=== PATIENT | male | born 2000 | race Caucasian/White ===

== ENCOUNTER 2019-12-04 01:45 | Inpatient (IN) ==
[2019-12-04] MEDS ORDERED: SODIUM CHLORIDE 0.9% 1000ML 1,000 ML IV ONE (01:58)
[2019-12-04 02:13] LABS: Basophils # (auto) 0.04 K/uL (0-0.2); Basophils % (auto) 0.4 %; Eosinophils # (auto) 0.09 K/uL (0-0.5); Hemoglobin 14.6 g/dL (14.0-18.0); Immature Granulocytes # (auto) 0.03 K/uL (0.00-0.02); Immature Granulocytes % (auto) 0.3 %; Lymphocytes # (auto) 3.86 K/uL (1.2-3.4); Lymphocytes % (auto) 41.4 %; Mean Corpuscular Hemoglobin 30.9 pg (25-34); Mean Corpuscular Hgb Conc 33.2 g/dL (32-36); Mean Platelet Volume 11.6 fL (7.4-10.4); Monocytes # (auto) 0.54 K/uL (0.11-0.59); Monocytes % (auto) 5.8 %; Neutrophils # (auto) 4.77 K/uL (1.4-6.5); Neutrophils % (auto) 51.1 %; Platelet Count 263 K/uL (130-400); RDW Coefficient of Variation 12.8 % (11.5-14.5); RDW Standard Deviation 43.8 fL (36.4-46.3); Red Blood Count 4.73 M/uL (4.7-6.1); White Blood Count 9.33 K/uL (4.8-10.8)
--- NOTE | 2019-12-04 02:17 | Emergency Department Note ---
History of Present Illness General Chief complaint: Seizure Stated complaint: SEIZURE Time Seen by Provider: 12/04/19 01:48 Source: patient Mode of arrival: EMS Limitations: no limitations History of Present Illness Maximum Pain Intensity: 2 This patient is a 19-year-old male who presents to the emergency department via EMS for evaluation of a possible seizure. Per EMS, the patient was with friends about 45 minutes prior to arrival. He stood up, stumbled and fell to the ground, hitting the right side of his head. According to his friends, he then had about 1 minute of seizure-like activity. They reported he was confused afterward. There was no tongue biting or incontinence. The patient states that he remembers being with friends and then remembers EMS arriving. He reports some mild pain in the right side of the head where he hit the head. He denies any recent illness, fevers, headaches, neck pain, chest pain, shortness of breath. He is unsure how much he had to eat or drink throughout the day. He does use medical marijuana for anxiety and states that he thinks he was about to smoke marijuana tonight when this episode occurred. He denies any alcohol use or other drug use. He denies any history of seizures. He is healthy other than his history of anxiety. Home Medications Home Medications Medication Instructions Recorded Confirmed Type Medical Marijuana 1 dose INHALATION DIRECTED PRN 12/04/19 12/04/19 History levetiracetam [Keppra] 500 mg PO BID #60 tab 12/04/19 Rx Allergies Allergy/AdvReac Type Severity Reaction Status Date / Time pollen extracts Allergy Intermediate ITCHY Verified 12/04/19 02:32 EYES, SNEEZING, CONGESTION Past Med/Surg History Medical History Anxiety Low blood pressure Panic attack Surgical History No significant past surgical history Family History Other Diabetes Low blood pressure Social History Smoking Status: Never smoker Hx Alcohol Use: Yes Alcohol type: wine Hx Substance Use: Yes Prescribed Medications: Marijuana Preferred Language: Divehi Current Living Situation: Other Current Living Situation Comment: Roomates, [employer] student rents home. current occupational status: student Review of Systems A total of 10 systems reviewed and were otherwise negative Physical Exam Vital Signs Vital Signs - 24 hr 12/04/19 01:55 12/04/19 02:01 12/04/19 02:31 Temperature 36.9 C Temperature Source Oral Pulse Rate 84 85 87 Pulse Rate from SpO2 Sensor 84 86 Respiratory Rate 18 20 19 Respiratory Effort / Characteristics Non-Labored Spontaneous Respiratory Depth Normal Respiratory Pattern Regular Blood Pressure 110/72 148/78 H 120/69 Blood Pressure Mean 84 101 86 Blood Pressure Position Lying Pulse Oximetry 99 100 98 Oxygen Delivery Method Room Air Room Air Room Air Sepsis Recent Fever Within 48 Hours No Sepsis New/Unexplained Change in Mental Status Yes Sepsis Action Taken by Nursing No Action Required 12/04/19 02:45 12/04/19 03:00 12/04/19 03:30 Temperature Temperature Source Pulse Rate 113 H 107 H 96 H Pulse Rate from SpO2 Sensor 113 H 107 H 98 H Respiratory Rate 23 30 H 20 Respiratory Effort / Characteristics Respiratory Depth Respiratory Pattern Blood Pressure 144/61 H 93/57 L 116/61 Blood Pressure Mean 81 71 78 Blood Pressure Position Pulse Oximetry 99 98 95 Oxygen Delivery Method Room Air Non-rebreather Room Air Sepsis Recent Fever Within 48 Hours Sepsis New/Unexplained Change in Mental Status Sepsis Action Taken by Nursing 12/04/19 04:00 12/04/19 04:30 12/04/19 05:00 Temperature Temperature Source Pulse Rate 97 H 100 H 96 H Pulse Rate from SpO2 Sensor 98 H 101 H 96 H Respiratory Rate 20 21 24 Respiratory Effort / Characteristics Respiratory Depth Respiratory Pattern Blood Pressure 118/65 108/60 118/62 Blood Pressure Mean 81 70 79 Blood Pressure Position Pulse Oximetry 95 94 93 Oxygen Delivery Method Sepsis Recent Fever Within 48 Hours Sepsis New/Unexplained Change in Mental Status Sepsis Action Taken by Nursing 12/04/19 05:30 Temperature Temperature Source Pulse Rate 96 H Pulse Rate from SpO2 Sensor 92 H Respiratory Rate 21 Respiratory Effort / Characteristics Respiratory Depth Respiratory Pattern Blood Pressure 93/66 L Blood Pressure Mean 73 Blood Pressure Position Pulse Oximetry 96 Oxygen Delivery Method Sepsis Recent Fever Within 48 Hours Sepsis New/Unexplained Change in Mental Status Sepsis Action Taken by Nursing VITALS: Vitals are noted on the nurse's note and reviewed by myself. Vital signs stable. GENERAL: This is a 19-year-old male, in no acute distress, well-developed well- nourished. SKIN: The skin was without rashes, erythema, edema, or bruising. HEAD: Normocephalic atraumatic. EARS: External auditory canals clear, tympanic membranes pearly melo without erythema or effusion bilaterally. EYES: Pupils equal round and reactive to light and accommodation. Extraocular movements intact. MOUTH: Mucous membranes moist. Bite blevins noted to the lateral aspects of the tongue bilaterally. NECK: Supple without nuchal rigidity. Cervical spine is nontender. HEART: Regular rate and rhythm without murmurs gallops or rubs. LUNGS: Clear to auscultation bilaterally without wheezes, rales or rhonchi. No retractions or accessory muscle use. ABDOMEN: Positive bowel sounds x 4. Soft, nontender to palpation. No guarding or rebound tenderness. MUSCULOSKELETAL: Full range of motion throughout. Strength 5/5 throughout. NEURO: Patient was alert and oriented to person place and time, but does not remember the events that occurred prior to arrival. Normal sensation to light and sharp touch. No focal neurological deficits. Course Course 22:41: Patient began having another seizure. He was given 2 mg lorazepam IV with resolution of seizure activity. Patient was given a loading dose of 2 g Keppra IV. I updated the patient's friend. After the patient was more alert, I spoke with him and received permission to talk with his father. I spoke with the patient's father, Darrell via telephone and explained his presentation and work-up as well as the treatment plan. His father agreed with the treatment plan and plans to drive here tomorrow morning from the [facility]. Consultations Consultation #1: Dr. Marquez - [facility] hospitalist Administered Medications Discontinued Medications Acetaminophen (Acetaminophen 325 Mg Tab) 650 mg PO Q4H PRN PRN Reason: pain/fever Stop: 01/03/20 07:14 Last Admin: 12/04/19 14:04 Dose: 650 mg Documented by: [id number] Gadobutrol (Gadobutrol 65ml Vial) 6.5 ml IV ONCE ONE Stop: 12/04/19 15:56 Last Admin: 12/04/19 15:55 Dose: 6.5 ml Documented by: [id number] Sodium Chloride (Nss 1000ml) 1,000 mls @ 999 mls/hr IV .Q1H1M ONE Stop: 12/04/19 02:58 Last Infusion: 12/04/19 03:36 Dose: 0 mls/hr Documented by: [id number] Admin: 12/04/19 02:09 Dose: 999 mls/hr Documented by: [id number] Lorazepam (Ativan) 2 mg in 4 mls @ 4 mls/min IV NOW STA Stop: 12/04/19 02:45 Last Admin: 12/04/19 02:47 Dose: 4 mls/min Documented by: [id number] Levetiracetam 2,000 mg/ Sodium (Chloride) 270 mls @ 999 mls/hr IV NOW STA Stop: 12/04/19 03:00 Last Infusion: 12/04/19 03:52 Dose: 0 mls/hr Documented by: [id number] Admin: 12/04/19 03:32 Dose: 999 mls/hr Documented by: [id number] Lactated Ringer's (Lr) 1,000 mls @ 125 mls/hr IV .Q8H BHARGAVI Stop: 12/04/19 15:14 Last Admin: 12/04/19 10:33 Dose: 125 mls/hr Documented by: [id number] Levetiracetam (Levetiracetam 500 Mg Tab) 500 mg PO BID [facility] Stop: 01/03/20 11:59 Last Admin: 12/04/19 19:14 Dose: 500 mg Documented by: [id number] Admin: 12/04/19 13:45 Dose: 500 mg Documented by: [id number] Lorazepam (Lorazepam 2 Mg/4 Ml Vial) Confirm Administered Dose 2 mg .ROUTE .STK- MED ONE Stop: 12/04/19 02:43 Last Admin: 12/04/19 02:47 Dose: Not Given Documented by: [id number] Phenol (Chloraseptic 1.4% Soln 180 Ml Btl) 2 sprays MT Q2H PRN PRN Reason: Sore Throat Stop: 01/03/20 12:19 Last Admin: 12/04/19 16:23 Dose: 2 sprays Documented by: [id number] Admin: 12/04/19 14:05 Dose: 2 sprays Documented by: [id number] Critical Care Time Critical Care Time: Yes Total Critical Care Time: 35 I have personally spent greater than 35 minutes of critical care time in the direct management of this patient. This includes bedside care, interpretation of diagnostic studies, and testing, discussion with consultants, patient, and family members, and other required patient management activities. This 35 minutes is in excess of all separately billable procedures. Medical Decision Making Differential Diagnosis Epilepsy, infection, hypoglycemia, electrolyte abnormalities, cardiac sources, intracerebral event, trauma, toxicologic, neurologic, syncope, as well as other pathologies. Home Medications Current Medication List: was personally reviewed by me Laboratory Data Attestation: I reviewed the patient's lab results. Result diagrams: 12/04/19 02:00 12/04/19 02:00 Lab Results 12/04/19 12/04/19 12/04/19 Range/Units 02:00 02:00 02:00 WBC 9.33 (4.8-10.8) K/uL RBC 4.73 (4.7-6.1) M/uL Hgb 14.6 (14.0-18.0) g/dL Hct 44.0 (42-52) % MCV 93.0 (80-100) fL MCH 30.9 (25-34) pg MCHC 33.2 (32-36) g/dL RDW Std Deviation 43.8 (36.4-46.3) fL RDW Coeff of Kasia 12.8 (11.5-14.5) % Plt Count 263 (130-400) K/uL MPV 11.6 H (7.4-10.4) fL Immature Gran % (Auto) 0.3 % Neut % (Auto) 51.1 % Lymph % (Auto) 41.4 % Lyman % (Auto) 5.8 % Eos % (Auto) 1.0 % Baso % (Auto) 0.4 % Neut # (Auto) 4.77 (1.4-6.5) K/uL Lymph # (Auto) 3.86 H (1.2-3.4) K/uL Lyman # (Auto) 0.54 (0.11-0.59) K/uL Eos # (Auto) 0.09 (0-0.5) K/uL Baso # (Auto) 0.04 (0-0.2) K/uL Immature Gran # (Auto) 0.03 H (0.00-0.02) K/uL Sodium 141 (136-145) mmol/L Potassium 3.8 (3.5-5.1) mmol/L Chloride 108 H (98-107) mmol/L Carbon Dioxide 24 (21-32) mmol/L Anion Gap 9.0 (3-11) BUN 17 (7-18) mg/dl Creatinine 1.14 (0.6-1.4) mg/dl Est Cr Clr Drug Dosing 95.7 ml/min Est GFR ( Amer) 106.0 Est GFR (Non-Af Amer) 91.4 BUN/Creatinine Ratio 14.5 (10-20) Glucose 88 (70-99) mg/dl Calcium 8.8 (8.5-10.1) mg/dl Phosphorus 2.6 (2.5-4.9) mg/dl Magnesium 2.5 H (1.8-2.4) mg/dl Total Bilirubin 0.3 (0.2-1) mg/dl AST 19 (15-37) U/L ALT 32 (12-78) U/L Alkaline Phosphatase 62 (45-117) U/L Total Protein 7.7 (6.4-8.2) gm/dl Albumin 4.2 (3.4-5.0) gm/dl Globulin 3.5 (2.5-4.0) gm/dl Albumin/Globulin Ratio 1.2 (0.9-2) TSH 3.460 (0.300-4.500) uIu/ml Urine Color Urine Appearance (Clear) Urine pH (4.5-7.5) Ur Specific [place] (1.000-1.030) Urine Protein (Negative) Urine Glucose (UA) (Negative) Urine Ketones (Negative) Urine Blood (Negative) Urine Nitrite (Negative) Urine Bilirubin (Negative) Urine Urobilinogen (Negative) Ur Leukocyte Esterase (Negative) Urine Opiates Screen (Neg) Ur Methadone, Qual (Neg) Urine Barbiturates (Neg) Ur Phencyclidine (PCP) (Neg) U Amphetamin/Meth Scrn (Neg) MDMA (Ecstasy) Screen (Neg) U Benzodiazepines Scrn (Neg) Ur Cocaine Metabolite (Neg) U Marijuana (THC) Screen (Neg) Ethyl Alcohol mg/dL (0-3) mg/dl COVID-19 Eval Order SARS-CoV-2, RNA, NAAT (NEGATIVE) 12/04/19 12/04/19 12/04/19 Range/Units 02:08 03:30 03:30 WBC (4.8-10.8) K/uL RBC (4.7-6.1) M/uL Hgb (14.0-18.0) g/dL Hct (42-52) % MCV (80-100) fL MCH (25-34) pg MCHC (32-36) g/dL RDW Std Deviation (36.4-46.3) fL RDW Coeff of Kasia (11.5-14.5) % Plt Count (130-400) K/uL MPV (7.4-10.4) fL Immature Gran % (Auto) % Neut % (Auto) % Lymph % (Auto) % Lyman % (Auto) % Eos % (Auto) % Baso % (Auto) % Neut # (Auto) (1.4-6.5) K/uL Lymph # (Auto) (1.2-3.4) K/uL Lyman # (Auto) (0.11-0.59) K/uL Eos # (Auto) (0-0.5) K/uL Baso # (Auto) (0-0.2) K/uL Immature Gran # (Auto) (0.00-0.02) K/uL Sodium (136-145) mmol/L Potassium (3.5-5.1) mmol/L Chloride (98-107) mmol/L Carbon Dioxide (21-32) mmol/L Anion Gap (3-11) BUN (7-18) mg/dl Creatinine (0.6-1.4) mg/dl Est Cr Clr Drug Dosing ml/min Est GFR ( Amer) Est GFR (Non-Af Amer) BUN/Creatinine Ratio (10-20) Glucose (70-99) mg/dl Calcium (8.5-10.1) mg/dl Phosphorus (2.5-4.9) mg/dl Magnesium (1.8-2.4) mg/dl Total Bilirubin (0.2-1) mg/dl AST (15-37) U/L ALT (12-78) U/L Alkaline Phosphatase (45-117) U/L Total Protein (6.4-8.2) gm/dl Albumin (3.4-5.0) gm/dl Globulin (2.5-4.0) gm/dl Albumin/Globulin Ratio (0.9-2) TSH (0.300-4.500) uIu/ml Urine Color Urine Appearance (Clear) Urine pH (4.5-7.5) Ur Specific [place] (1.000-1.030) Urine Protein (Negative) Urine Glucose (UA) (Negative) Urine Ketones (Negative) Urine Blood (Negative) Urine Nitrite (Negative) Urine Bilirubin (Negative) Urine Urobilinogen (Negative) Ur Leukocyte Esterase (Negative) Urine Opiates Screen (Neg) Ur Methadone, Qual (Neg) Urine Barbiturates (Neg) Ur Phencyclidine (PCP) (Neg) U Amphetamin/Meth Scrn (Neg) MDMA (Ecstasy) Screen (Neg) U Benzodiazepines Scrn (Neg) Ur Cocaine Metabolite (Neg) U Marijuana (THC) Screen (Neg) Ethyl Alcohol mg/dL < 3.0 (0-3) mg/dl COVID-19 Eval [email or web address]-2, RNA, NAAT NEGATIVE (NEGATIVE) 12/04/19 12/04/19 Range/Units 04:40 04:40 WBC (4.8-10.8) K/uL RBC (4.7-6.1) M/uL Hgb (14.0-18.0) g/dL Hct (42-52) % MCV (80-100) fL MCH (25-34) pg MCHC (32-36) g/dL RDW Std Deviation (36.4-46.3) fL RDW Coeff of Kasia (11.5-14.5) % Plt Count (130-400) K/uL MPV (7.4-10.4) fL Immature Gran % (Auto) % Neut % (Auto) % Lymph % (Auto) % Lyman % (Auto) % Eos % (Auto) % Baso % (Auto) % Neut # (Auto) (1.4-6.5) K/uL Lymph # (Auto) (1.2-3.4) K/uL Lyman # (Auto) (0.11-0.59) K/uL Eos # (Auto) (0-0.5) K/uL Baso # (Auto) (0-0.2) K/uL Immature Gran # (Auto) (0.00-0.02) K/uL Sodium (136-145) mmol/L Potassium (3.5-5.1) mmol/L Chloride (98-107) mmol/L Carbon Dioxide (21-32) mmol/L Anion Gap (3-11) BUN (7-18) mg/dl Creatinine (0.6-1.4) mg/dl Est Cr Clr Drug Dosing ml/min Est GFR ( Amer) Est GFR (Non-Af Amer) BUN/Creatinine Ratio (10-20) Glucose (70-99) mg/dl Calcium (8.5-10.1) mg/dl Phosphorus (2.5-4.9) mg/dl Magnesium (1.8-2.4) mg/dl Total Bilirubin (0.2-1) mg/dl AST (15-37) U/L ALT (12-78) U/L Alkaline Phosphatase (45-117) U/L Total Protein (6.4-8.2) gm/dl Albumin (3.4-5.0) gm/dl Globulin (2.5-4.0) gm/dl Albumin/Globulin Ratio (0.9-2) TSH (0.300-4.500) uIu/ml Urine Color Yellow Urine Appearance Clear (Clear) Urine pH 5.5 (4.5-7.5) Ur Specific [place] 1.020 (1.000-1.030) Urine Protein Negative (Negative) Urine Glucose (UA) Negative (Negative) Urine Ketones Negative (Negative) Urine Blood Negative (Negative) Urine Nitrite Negative (Negative) Urine Bilirubin Negative (Negative) Urine Urobilinogen Negative (Negative) Ur Leukocyte Esterase Negative (Negative) Urine Opiates Screen Neg (Neg) Ur Methadone, Qual Neg (Neg) Urine Barbiturates Neg (Neg) Ur Phencyclidine (PCP) Neg (Neg) U Amphetamin/Meth Scrn Neg (Neg) MDMA (Ecstasy) Screen Neg (Neg) U Benzodiazepines Scrn Neg (Neg) Ur Cocaine Metabolite Neg (Neg) U Marijuana (THC) Screen Pos H (Neg) Ethyl Alcohol mg/dL (0-3) mg/dl COVID-19 Eval Order SARS-CoV-2, RNA, NAAT (NEGATIVE) Imaging Data Attestation: I personally reviewed and interpreted this imaging study as follows: Radiologist's Impression: CT HEAD: No focal or acute intracranial findings. No abnormalities noted of the bones. Radiologist: Taran Mitchell MD ECG Data Attestation: I personally reviewed and interpreted this ECG as follows: Indication: + other Rate (beats per minute): 89 Rhythm: + normal sinus ECG Intervals/blocks: + Normal QRS ECG ST segments: + Normal ST segments Comparison ECG Date: no prior available MDM Narrative Continuous director of cardiac rehabilitation: Order was placed for continuous director of cardiac rehabilitation. Patient was placed on the director of cardiac rehabilitation. Patient was noted to be in normal sinus rhythm at an initial rate of 85 bpm. The patient is a 19-year-old male who presents today for evaluation of a possible seizure witnessed by friends. Initially it was unclear whether this was a syncopal episode with seizure activity versus a true seizure, however the patient did have a second witnessed seizure here. He was given IV lorazepam as well as a loading dose of Keppra. No signs of infection, with no leukocytosis or fevers. Electrolytes are all within normal limits. Urine drug screen was positive for marijuana which the patient admits to using for anxiety. He has no seizure history. Patient with new onset seizures and will be admitted to the [facility]ist service for further evaluation and care. Impression & Plan Seizure Discharge Plan Visit Data Chief Complaint: Seizure Stated Complaint: SEIZURE ED Provider: Darrell Solano ED Midlevel Provider: Nila Marie Discharge Problem: Seizure Patient Disposition: Admitted As Inpatient Discharge Instructions Interventions: ED Discharge Assessment Last Done: 12/04/19 06:08
[2019-12-04 02:33] LABS: Albumin Level 4.2 gm/dl (3.4-5.0); BUN Creatinine Ratio 14.5 (10-20); Calcium 8.8 mg/dl (8.5-10.1); Creatinine Clr Calc Pharmacy 95.7 ml/min; Est GFR (Non-African American) 91.4; Potassium 3.8 mmol/L (3.5-5.1)
[2019-12-04] MEDS ORDERED: LORazepam 2 MG/4 ML VIAL ONE (02:42)
[2019-12-04 02:43] LABS: Albumin Globulin Ratio 1.2 (0.9-2); Bilirubin,Total 0.3 mg/dl (0.2-1); Globulin 3.5 gm/dl (2.5-4.0); Thyroid Stimulating Hormone 3.46 uIu/ml (0.300-4.500); Total Protein 7.7 gm/dl (6.4-8.2)
[2019-12-04] MEDS ORDERED: LORazepam 2 MG/4 ML VIAL IV STA (02:44)
[2019-12-04 04:53] LABS: Appearance Urine Clear (Clear); Bilirubin Urine Negative (Negative); Blood Urine Negative (Negative); Color Urine Yellow; Glucose Urine UA Negative (Negative); Ketones Urine Negative (Negative); Leukocyte Esterase Urine Negative (Negative); Nitrite Urine Negative (Negative); Protein Urine Negative (Negative); Urobilinogen Urine Negative (Negative); pH Urine 5.5 (4.5-7.5)
[2019-12-04 05:12] LABS: Amphetamines+Metham, Urine Neg (Neg); Barbiturates, Urine Neg (Neg); Benzodiazepine, Urine Neg (Neg); Cocaine, Urine Neg (Neg); MDMA (Ecstacy), Urine Neg (Neg); Methadone, Urine Neg (Neg); Opiate, Urine Neg (Neg); Phencyclidine, Urine Neg (Neg)
--- NOTE | 2019-12-04 05:31 | History & Physical Report ---
Date of Service December 04, 2019 Assessment & Plan (1) Seizure: 19yo male with history of anxiety presenting with witness tonic clonic seizure x 2. Patient with no personal or family history of seizure, no head trauma, fever, neck stiffness. He states he has not been sleeping or eating w ell and smokes a lot of marijuana - most likely contributing factors to his seizure. CT Head unremarkable. Electrolytes and TSH are within normal limits. Physical exam with no focal deficits. -Admit to medical floor -Seizure precautions -Ativan as needed -EEG -Neurology consultaton -Will hold off on additional AEDs/Keppra at this time Present on Admission?: Yes (2) Anxiety: Patient with diagnosis of anxiety. He has a medical marijuana card for this. Patient may benefit from starting a low dose SSRI for management of his anxiety or hydroxyzine to be taken as needed for anxiety symptoms rather than using the marijuana as frequently as he has been. Patient requested that he not be started on anything that is habit forming or may become addicting. He states that he has some addiction issues in his family and has noted some addictive tendencies in himself. To that end, benzos should be avoided as PRN agents. Patient should be encouraged to pursue alternative methods of stress management such as exercise, yoga, meditation, etc Present on Admission?: Yes (3) Low blood pressure: Patient reports personal and family history of low blood pressure. He has dizziness with positional changes as well. ?Consider POTS - orthostasis, low bp, anxiety, sleep disturbance -Check Orthostatic VS x 1 -Continue IVF F/E/N - LR at 125mL/hr x 2 liters, electrolytes WNL, Regular diet as tolerated Ppx - Low risk for DVT, IVF and ambulation Code - Full Dispo - Admit to medical floor - Covid-19 test NEGATIVE Present on Admission?: Yes History of Present Illness Chief Complaint: seizure x 2 Primary Care Provider: [facility] Darrell Bahena is a pleasant 19yo male with history of anxiety presenting with witnessed seizure x 2. Patient was with friends this evening. He stood up from the couch then reportedly stumbled, bumped his head and had an episode of seizure-like activity lasting approximately 1 minute. By report, patient was slightly confused when EMS arrived on the scene. Patient does not recall the seizure. He does remember waking up with EMS over him. He was transported to [facility]. Upon arrival he was afebrile, hemodynamically stable, NAD. Patient had a witnessed seizure in the ER. He reports having some "tunnel vision" preceding the second seizure. He was given 2mg of Ativan and subsequently loaded with 2g of IV Keppra. Patient states that he has not been sleeping or eating well at times. He says he smokes a lot of marijuana, approximately 1 gm per day. He buys the marijuana from friends - no synthetic, no THC vaping. He does have a medical marijuana card for his diagnosis of anxiety, however, he has not been to the dispensary here. He drinks EtOH fairly regularly. No prior seizure history. No fever/headache/neck stiffness/numbness/tingling/weakness. Patient complaining of some tongue soreness otherwise feels well. ER Course: Ativan x 2mg IV, Keppra x 2gm Allergies Allergy/AdvReac Type Severity Reaction Status Date / Time pollen extracts Allergy Intermediate ITCHY Verified 12/04/19 02:32 EYES, SNEEZING, CONGESTION Home Medications Home Medications Medication Instructions Recorded Confirmed Type Medical Marijuana 1 dose INHALATION DIRECTED PRN 12/04/19 12/04/19 History Past Med/Surg History Medical History (Updated 12/04/19 @ 06:18 by Ligia Marquez DO) Anxiety Low blood pressure Panic attack Surgical History (Updated 12/04/19 @ 05:58 by Ligia Marquez DO) No significant past surgical history Family History (Updated 12/04/19 @ 05:59 by Ligia Marquez DO) Other Diabetes Low blood pressure Social History (Updated 12/04/19 @ 05:59 by Ligia Marquez DO) Smoking Status: Never smoker Hx Alcohol Use: Yes Hx Substance Use: Yes Prescribed Medications: Marijuana Preferred Language: Mexican current occupational status: student Review of Systems Review of Systems: All systems reviewed & are unremarkable except as noted in HPI & below +Nausea Physical Exam Physical Exam: General: patient resting comfortably, NAD, non-toxic in appearance, AA&O x 4 Skin: warm, dry, intact, no rashes or lesions HEENT: NC/AT, PERRL, EOMI, anicteric sclera, conjunctiva without injection, external ear normal to inspection and nontender, nares patent, moist mucus membranes, dentition intact, no oropharyngeal lesions, neck supple, trachea midline, no LAD, no thyromegaly, no JVD Heart: +S1/S2, regular, no m/r/g Lungs: equal air entry bilaterally, no rales/rhonchi/wheezes Abd: +BS, soft, NT/ND, no masses/organomegaly/ascites Ext: warm, 2+ pulses in UE/LE bilaterally, no clubbing/cyanosis or edema Neuro: nonfocal, patient AA&O x 4, speech intact, no facial droop, moving all extremities on command with equal strength 5/5 Results & Data Results & Data ([facility]) Vital Signs (Past 12 Hours) Vital Signs Temp Pulse Resp BP Pulse Ox 12/04/19 04:00 97 H 20 118/65 95 12/04/19 03:30 96 H 20 116/61 95 12/04/19 03:00 107 H 30 H 93/57 L 98 12/04/19 02:45 113 H 23 144/61 H 99 12/04/19 02:31 87 19 120/69 98 12/04/19 02:01 85 20 148/78 H 100 12/04/19 01:55 36.9 C 84 18 110/72 99 Laboratory Results Lab Results 12/04/19 12/04/19 12/04/19 Range/Units 02:00 02:00 02:08 WBC 9.33 (4.8-10.8) K/uL RBC 4.73 (4.7-6.1) M/uL Hgb 14.6 (14.0-18.0) g/dL Hct 44.0 (42-52) % MCV 93.0 (80-100) fL MCH 30.9 (25-34) pg MCHC 33.2 (32-36) g/dL RDW Std Deviation 43.8 (36.4-46.3) fL RDW Coeff of Kasia 12.8 (11.5-14.5) % Plt Count 263 (130-400) K/uL MPV 11.6 H (7.4-10.4) fL Immature Gran % (Auto) 0.3 % Neut % (Auto) 51.1 % Lymph % (Auto) 41.4 % [place] % (Auto) 5.8 % Eos % (Auto) 1.0 % Baso % (Auto) 0.4 % Neut # (Auto) 4.77 (1.4-6.5) K/uL Lymph # (Auto) 3.86 H (1.2-3.4) K/uL [place] # (Auto) 0.54 (0.11-0.59) K/uL Eos # (Auto) 0.09 (0-0.5) K/uL Baso # (Auto) 0.04 (0-0.2) K/uL Immature Gran # (Auto) 0.03 H (0.00-0.02) K/uL Sodium 141 (136-145) mmol/L Potassium 3.8 (3.5-5.1) mmol/L Chloride 108 H (98-107) mmol/L Carbon Dioxide 24 (21-32) mmol/L Anion Gap 9.0 (3-11) BUN 17 (7-18) mg/dl Creatinine 1.14 (0.6-1.4) mg/dl Est Cr Clr Drug Dosing 95.7 ml/min Est GFR ( Amer) 106.0 Est GFR (Non-Af Amer) 91.4 BUN/Creatinine Ratio 14.5 (10-20) Glucose 88 (70-99) mg/dl Calcium 8.8 (8.5-10.1) mg/dl Total Bilirubin 0.3 (0.2-1) mg/dl AST 19 (15-37) U/L ALT 32 (12-78) U/L Alkaline Phosphatase 62 (45-117) U/L Total Protein 7.7 (6.4-8.2) gm/dl Albumin 4.2 (3.4-5.0) gm/dl Globulin 3.5 (2.5-4.0) gm/dl Albumin/Globulin Ratio 1.2 (0.9-2) TSH 3.460 (0.300-4.500) uIu/ml Urine Color Urine Appearance (Clear) Urine pH (4.5-7.5) Ur Specific [place] (1.000-1.030) Urine Protein (Negative) Urine Glucose (UA) (Negative) Urine Ketones (Negative) Urine Blood (Negative) Urine Nitrite (Negative) Urine Bilirubin (Negative) Urine Urobilinogen (Negative) Ur Leukocyte Esterase (Negative) Urine Opiates Screen (Neg) Ur Methadone, Qual (Neg) Urine Barbiturates (Neg) Ur Phencyclidine (PCP) (Neg) U Amphetamin/Meth Scrn (Neg) MDMA (Ecstasy) Screen (Neg) U Benzodiazepines Scrn (Neg) Ur Cocaine Metabolite (Neg) U Marijuana (THC) Screen (Neg) Ethyl Alcohol mg/dL < 3.0 (0-3) mg/dl COVID-19 Eval Order SARS-CoV-2, RNA, NAAT (NEGATIVE) 12/04/19 12/04/19 12/04/19 Range/Units 03:30 03:30 04:40 WBC (4.8-10.8) K/uL RBC (4.7-6.1) M/uL Hgb (14.0-18.0) g/dL Hct (42-52) % MCV (80-100) fL MCH (25-34) pg MCHC (32-36) g/dL RDW Std Deviation (36.4-46.3) fL RDW Coeff of Kasia (11.5-14.5) % Plt Count (130-400) K/uL MPV (7.4-10.4) fL Immature Gran % (Auto) % Neut % (Auto) % Lymph % (Auto) % [place] % (Auto) % Eos % (Auto) % Baso % (Auto) % Neut # (Auto) (1.4-6.5) K/uL Lymph # (Auto) (1.2-3.4) K/uL [place] # (Auto) (0.11-0.59) K/uL Eos # (Auto) (0-0.5) K/uL Baso # (Auto) (0-0.2) K/uL Immature Gran # (Auto) (0.00-0.02) K/uL Sodium (136-145) mmol/L Potassium (3.5-5.1) mmol/L Chloride (98-107) mmol/L Carbon Dioxide (21-32) mmol/L Anion Gap (3-11) BUN (7-18) mg/dl Creatinine (0.6-1.4) mg/dl Est Cr Clr Drug Dosing ml/min Est GFR ( Amer) Est GFR (Non-Af Amer) BUN/Creatinine Ratio (10-20) Glucose (70-99) mg/dl Calcium (8.5-10.1) mg/dl Total Bilirubin (0.2-1) mg/dl AST (15-37) U/L ALT (12-78) U/L Alkaline Phosphatase (45-117) U/L Total Protein (6.4-8.2) gm/dl Albumin (3.4-5.0) gm/dl Globulin (2.5-4.0) gm/dl Albumin/Globulin Ratio (0.9-2) TSH (0.300-4.500) uIu/ml Urine Color Yellow Urine Appearance Clear (Clear) Urine pH 5.5 (4.5-7.5) Ur Specific [place] 1.020 (1.000-1.030) Urine Protein Negative (Negative) Urine Glucose (UA) Negative (Negative) Urine Ketones Negative (Negative) Urine Blood Negative (Negative) Urine Nitrite Negative (Negative) Urine Bilirubin Negative (Negative) Urine Urobilinogen Negative (Negative) Ur Leukocyte Esterase Negative (Negative) Urine Opiates Screen (Neg) Ur Methadone, Qual (Neg) Urine Barbiturates (Neg) Ur Phencyclidine (PCP) (Neg) U Amphetamin/Meth Scrn (Neg) MDMA (Ecstasy) Screen (Neg) U Benzodiazepines Scrn (Neg) Ur Cocaine Metabolite (Neg) U Marijuana (THC) Screen (Neg) Ethyl Alcohol mg/dL (0-3) mg/dl COVID-19 Eval Order Covid19 IDNow atMWVC SARS-CoV-2, RNA, NAAT NEGATIVE (NEGATIVE) 12/04/19 Range/Units 04:40 WBC (4.8-10.8) K/uL RBC (4.7-6.1) M/uL Hgb (14.0-18.0) g/dL Hct (42-52) % MCV (80-100) fL MCH (25-34) pg MCHC (32-36) g/dL RDW Std Deviation (36.4-46.3) fL RDW Coeff of Kasia (11.5-14.5) % Plt Count (130-400) K/uL MPV (7.4-10.4) fL Immature Gran % (Auto) % Neut % (Auto) % Lymph % (Auto) % [place] % (Auto) % Eos % (Auto) % Baso % (Auto) % Neut # (Auto) (1.4-6.5) K/uL Lymph # (Auto) (1.2-3.4) K/uL [place] # (Auto) (0.11-0.59) K/uL Eos # (Auto) (0-0.5) K/uL Baso # (Auto) (0-0.2) K/uL Immature Gran # (Auto) (0.00-0.02) K/uL Sodium (136-145) mmol/L Potassium (3.5-5.1) mmol/L Chloride (98-107) mmol/L Carbon Dioxide (21-32) mmol/L Anion Gap (3-11) BUN (7-18) mg/dl Creatinine (0.6-1.4) mg/dl Est Cr Clr Drug Dosing ml/min Est GFR ( Amer) Est GFR (Non-Af Amer) BUN/Creatinine Ratio (10-20) Glucose (70-99) mg/dl Calcium (8.5-10.1) mg/dl Total Bilirubin (0.2-1) mg/dl AST (15-37) U/L ALT (12-78) U/L Alkaline Phosphatase (45-117) U/L Total Protein (6.4-8.2) gm/dl Albumin (3.4-5.0) gm/dl Globulin (2.5-4.0) gm/dl Albumin/Globulin Ratio (0.9-2) TSH (0.300-4.500) uIu/ml Urine Color Urine Appearance (Clear) Urine pH (4.5-7.5) Ur Specific [place] (1.000-1.030) Urine Protein (Negative) Urine Glucose (UA) (Negative) Urine Ketones (Negative) Urine Blood (Negative) Urine Nitrite (Negative) Urine Bilirubin (Negative) Urine Urobilinogen (Negative) Ur Leukocyte Esterase (Negative) Urine Opiates Screen Neg (Neg) Ur Methadone, Qual Neg (Neg) Urine Barbiturates Neg (Neg) Ur Phencyclidine (PCP) Neg (Neg) U Amphetamin/Meth Scrn Neg (Neg) MDMA (Ecstasy) Screen Neg (Neg) U Benzodiazepines Scrn Neg (Neg) Ur Cocaine Metabolite Neg (Neg) U Marijuana (THC) Screen Pos H (Neg) Ethyl Alcohol mg/dL (0-3) mg/dl COVID-19 Eval Order SARS-CoV-2, RNA, NAAT (NEGATIVE) Diagnostic Findings CT Head: Per STAT-rad - No focal or acute intracranial findings. No abnormalities noted of the bones Code Status & VTE Plan Code Status FULL PG Care Time/CCT Total # of Minutes Spent Total Time Spent with Patient: Total time spent is greater than 50% in coordination of care (as documented) at patient's floor/unit and/or counseling patient: Coding Level of Care Code 98080 Initial Inpt Care Lvl 2 Diagnoses Seizure R56.9 Anxiety F41.9 Low blood pressure I95.9 Hypotension type: unspecified hypotension type (1) Low blood pressure Hypotension type: unspecified hypotension type Qualified Code(s): I95.9 - Hypotension, unspecified
[2019-12-04] MEDS ORDERED: LACTATED RINGER'S 1,000 ML IV SCH (07:15)
[2019-12-04] MEDS ORDERED: ACETAMINOPHEN 325 MG TAB PO PRN (07:15)
[2019-12-04] MEDS ORDERED: LORazepam 1 MG/2 ML VIAL IV PRN (07:15)
[2019-12-04 07:53] LABS: Magnesium 2.5 mg/dl (1.8-2.4); Phosphorus 2.6 mg/dl (2.5-4.9)
--- NOTE | 2019-12-04 08:13 | CT Scan Report ---
CT OF THE HEAD WITHOUT CONTRAST CLINICAL HISTORY: fall, head injury, possible seizure COMPARISON STUDY: No previous studies for comparison. CT DOSE: 614.27 mGy.cm TECHNIQUE: Helical axial images of the head were obtained without IV contrast. Automated exposure con trol was utilized for the study. A dose lowering technique was utilized adhering to the principles o f ALARA. FINDINGS: No acute intracranial hemorrhage, midline shift or mass effect is present. The ventricular system is unremarkable. The basilar cisterns are patent. No extra-axial collections are present. Ther e are no findings to suggest acute dural sinus thrombosis or acute territorial infarct. No significan t calvarial abnormalities are present. Visualized portions of the sinuses and mastoid air cells are c lear. IMPRESSION: 1. No acute intracranial findings. 2. No calvarial fracture. ACT 112: Negative or not required by law. Electronically signed by: Milo Duron M.D. 12/04/2019 8:12 AM
--- NOTE | 2019-12-04 10:14 | Neurology Consultation ---
Date of Consultation December 04, 2019 Assessment & Plan (1) Seizure: New onset seizure. Patient had 2 witnessed convulsive episodes about 1 hour apart occurring in the context of daily heavy marijuana use, reported sleep deprivation, and poor dietary intake recently. No other obvious recent provoking factors identified. He has been self-medicating with marijuana for anxiety. He is not taking any prescription medication for anxiety. His blood pressure tends to run slightly low at times. He does recall his vision tunneling down with 1 of these events. Convulsive syncope may not be completely excluded. Patient will need MRI of the brain with and without contrast, seizure protocol. EEG to be completed this morning. Patient was given a loading dose of 2 g of Keppra IV late last night. Would recommend starting Keppra 500 mg p.o. twice daily at this time. If the above testing is normal, however, and he remains clinically stable over the next 2 to 3 months, would be reasonable to taper off the anticonvulsant. Patient will need additional counseling regarding lifestyle factors that may have contributed to this first ever seizure episode which may have been provoked by a combination of heavy marijuana use, sleep deprivation, and poor dietary intake. Episodic alcohol consumption may also be a factor for this patient. Furthermore, if he does have a significant underlying anxiety disorder, he may do better with traditional treatment with an SSRI or other mood stabilizer. It may be advantageous for him to establish with a counselor and/or psychiatrist for this issue going forward. Self-medicating anxiety with marijuana is probably not going to be an optimal strategy for him in the long run. Case discussed with attending hospitalist, Dr. Ibarra. History of Present Illness Reason for Consultation: New onset seizure Requesting Physician: Ligia Marquez DO Attending Physician: Ranjeet Ibarra MD History of Present Illness The patient is a 19-year-old male with a chief complaint of seizure. The patient is somewhat amnestic for yesterday's events. He recalls that he was with friends and had stood up. He had reportedly walked a few feet, appeared to zone out and collapsed. He apparently struck the right side of his head in the context of this fall. He subsequently exhibited generalized shaking or convulsive movements for about 1 minute. He was confused afterwards. There was no report of any tongue bite or incontinence associated with this initial event. He apparently had another witnessed generalized convulsive episode during his assessment in the emergency department for which he was treated with lorazepam and Keppra. He seems to recall his vision tunneling down prior to the second episode. He currently complains of headache, left shoulder pain, and tongue pain. He does have a moderate laceration/bruising along the right side of his tongue. He was a bit somnolent/groggy earlier this morning when I initially attempted to assess him. Upon returning about an hour later he was more alert and conversant. He denies any prior history of epilepsy or seizure disorder in himself or in any first-degree family member. He denies any recent head injury or illness. He does admit that he smokes marijuana regularly and indicates that he has not really changed his frequency or quantity of use recently. He also admits to occasional alcohol consumption but denies any binge drinking within the past few days. He reports that he has not slept or eaten very well in the past few days which she relates to his anxiety. He indicates that he self medicates his anxiety with marijuana. 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 He did have an unremarkable CT of the head completed during his initial assessment in the emergency department. Imaging described in further detail below. His initial lab work is generally unrevealing other than a positive urine tox screen for marijuana. Allergies Allergy/AdvReac Type Severity Reaction Status Date / Time pollen extracts Allergy Intermediate ITCHY Verified 12/04/19 02:32 EYES, SNEEZING, CONGESTION Home Medications Home Medications Medication Instructions Recorded Confirmed Type Medical Marijuana 1 dose INHALATION DIRECTED PRN 12/04/19 12/04/19 History Patient History Medical History Anxiety Low blood pressure Panic attack Surgical History No significant past surgical history Family History Other Diabetes Low blood pressure Social History Smoking Status: Never smoker Hx Alcohol Use: Yes Alcohol type: wine Hx Substance Use: Yes Prescribed Medications: Marijuana Preferred Language: Citizen Of [place] Current Living Situation: Other Current Living Situation Comment: Roomates, [employer] student rents home. current occupational status: student Review of Systems Constitutional: no fever and no chills Eyes: no blind spots and no diplopia Ear, Nose, Mouth, Throat: no ear pain and no hearing loss Respiratory: no cough and no dyspnea Cardiovascular: no chest pain and no palpitations Gastrointestinal: no nausea and no vomiting Genitourinary: no dysuria Musculoskeletal: as per Subjective / HPI and + joint pain Left shoulder pain Integumentary: no rash and no lesions Neurologic: as per Subjective / HPI, + seizure-like activity and + headache(s); no localized weakness and no loss of sensation Psychiatric: as per Subjective / HPI and + anxiety Hematologic / Lymphatic: no easy bleeding and no easy bruising Exam (Neuro) Constitutional: well developed and well nourished; no acute distress Eyes: normal visual randall by confrontation, PERRL, normal accommodation and EOM intact bilaterally; no fundoscopic abnormality, no nystagmus and no papilledema Cardiovascular: Vessels: normal carotid upstroke; no carotid bruit Neurologic: Oriented to:: Person, Place and Time Memory: Short Term Intact and Remote Intact Attention: Span Intact and Concentration Intact Language: Naming Objects and Repeating Phrases Speech Fluency: negative Dysarthria Speech Aphasia: negative Aphasia Fund of Knowledge: Current Events, Past History and Vocabulary Cranial Nerves: Normal II (Visual randall full to confrontation, visual acuity normal), III, IV, (Pupils equal round reactive to light and accommodation, eye movements normal), V (Facial sensation intact), VII (There is no facial droop or weakness), VIII (Hearing intact), IX, X (Palate elevates to midline), XI (Shoulder shrug intact) and XII (Tongue protrudes to midline) Motor Strength: Normal Lower Extremities and Normal Upper Extremities; negative Pronator Drift Motor Tone: Normal Lower Extremities and Normal Upper Extremities Muscle Bulk/Involuntary Movements: No Involuntary Movements; negative Muscle Atrophy Sensation: Light Touch Intact, Pain/Temperature Intact, Vibration Intact and Proprioception Intact Coordination: Normal; negative Limited Balance, Dysdiadochokinesia, Finger-Nose Abnormal and Heel-Bob Abnormal Deep Tendon Reflexes: Rt Triceps: 2+, Lt Triceps: 2+, Rt Biceps: 2+, Lt Biceps: 2+, Rt Brachioradialis: 2+, Lt Brachioradialis: 2+, Rt Patellar: 2+, Lt Patellar: 2+, Rt Ankle: 2+ and Lt Ankle: 2+ Special Tests: negative Babinski Present Gait: Normal Station and Gait Results & Data ([facility]) Vital Signs (Past 12 Hours) Vital Signs Temp Pulse Pulse Resp BP BP Pulse Ox 12/04/19 06:15 37.1 C 84 16 97/48 L 95 12/04/19 06:00 98 H 21 110/57 L 95 12/04/19 05:30 96 H 21 93/66 L 96 12/04/19 05:00 96 H 24 118/62 93 12/04/19 04:30 100 H 21 108/60 94 12/04/19 04:00 97 H 20 118/65 95 12/04/19 03:30 96 H 20 116/61 95 12/04/19 03:00 107 H 30 H 93/57 L 98 12/04/19 02:45 113 H 23 144/61 H 99 12/04/19 02:31 87 19 120/69 98 12/04/19 02:01 85 20 148/78 H 100 12/04/19 01:55 36.9 C 84 18 110/72 99 Laboratory Results WBC 9.33, hemoglobin 14.6, hematocrit 44.0, platelet count 263, sodium 141, potassium 3.8, BUN 17, creatinine 1.14, glucose 88, calcium 8.8, magnesium 2.5, AST 19, ALT 32, TSH 3.460, urine tox screen positive for marijuana Diagnostic Findings CT of the head negative for hemorrhage or acute process. No calvarial fracture. No parenchymal abnormality. I reviewed the images as well as the radiologist's interpretation of this test. Electrocardiogram reveals a normal sinus rhythm, 89 bpm. Coding Level of Care Code 28943 Inpt Consult Level 5 Diagnoses Seizure R56.9
--- NOTE | 2019-12-04 11:48 | Electrocardiogram Report ---
Test Reason : Blood Pressure : / mmHG Vent. Rate : 089 BPM Atrial Rate : 089 BPM P-R Int : 196 ms QRS Dur : 092 ms QT Int : 350 ms P-R-T Axes : 073 077 057 degrees QTc Int : 425 ms Normal sinus rhythm Normal ECG No previous ECGs available Confirmed by Nikos Ramirez ([id number]) on 12/04/2019 11:47:50 AM Referred By: REFERRED SELF Confirmed By:Nikos Ramirez
--- NOTE | 2019-12-04 12:20 | History & Physical Bridge Note ---
Date of Service December 04, 2019 History & Physical Bridge Note Patient seen and examined today. He is doing well. No further seizures after presentation. Discussed with Dr. Jaramillo this morning. Unclear inciting event apart from sleep, diet. Marijuana and alcohol use possibly contributing, but alcohol intake seems quite reasonable overall. Does smoke marijuana 1+ times per day, though literature is not 100% clear on how this affects seizure threshold. - MRI brain with seizure protocol - EEG today - Continue Keppra - Likely monitor overnight. If no further seizures, likely discharge tomorrow.
--- NOTE | 2019-12-04 12:29 | Electroencephalogram ---
EEG Procedure Note Date of Service December 04, 2019 Start / End Times Start Time: 11:01 AM End Time: 11:21 AM Referring Physician Ranjeet Ibarra MD History New onset seizure Home Medication List Home Medications Medication Instructions Recorded Confirmed Type Medical Marijuana 1 dose INHALATION DIRECTED PRN 12/04/19 12/04/19 History Inpatient Medication List Lactated Ringer's (Lr) 1,000 mls @ 125 mls/hr IV .Q8H BHARGAVI Stop: 12/04/19 15:14 Last Admin: 12/04/19 10:33 Dose: 125 mls/hr Documented by: [id number] Discontinued Medications Sodium Chloride (Nss 1000ml) 1,000 mls @ 999 mls/hr IV .Q1H1M ONE Stop: 12/04/19 02:58 Last Infusion: 12/04/19 03:36 Dose: 0 mls/hr Documented by: [id number] Admin: 12/04/19 02:09 Dose: 999 mls/hr Documented by: [id number] Lorazepam (Ativan) 2 mg in 4 mls @ 4 mls/min IV NOW STA Stop: 12/04/19 02:45 Last Admin: 12/04/19 02:47 Dose: 4 mls/min Documented by: [id number] Levetiracetam 2,000 mg/ Sodium (Chloride) 270 mls @ 999 mls/hr IV NOW STA Stop: 12/04/19 03:00 Last Infusion: 12/04/19 03:52 Dose: 0 mls/hr Documented by: [id number] Admin: 12/04/19 03:32 Dose: 999 mls/hr Documented by: [id number] Lorazepam (Lorazepam 2 Mg/4 Ml Vial) Confirm Administered Dose 2 mg .ROUTE .STK- MED ONE Stop: 12/04/19 02:43 Last Admin: 12/04/19 02:47 Dose: Not Given Documented by: [id number] Description This is a 21 electrode EEG with a single channel dedicated to limited EKG. The electrodes were placed in accordance with the International 10-20 system. The predominant background rhythm consists of a mix of intermittent, attenuated 10 Hz alpha activity and generalized polymorphic theta rhythm. Photic stimulation is unremarkable. Hyperventilation is not performed. There are vertex waves and K complexes seen at study onset and intermittently throughout the study duration. There is intermittent symmetric frontal beta activity. There is no focal or lateralized slowing. There are no epileptiform abnormalities. Interpretation This is a normal-appearing awake/sleepy EEG revealing primarily stage II sleep. There is a benzodiazepine effect as well. There are no epileptiform abnormalities. A normal EEG does not completely exclude a diagnosis of epilepsy. Further clinical correlation may be needed. [facility] EEG Procedure Codes Indication for Procedure (1) Seizure: Neurology Neurology: [id number] EEG include record awake & sleepy
[2019-12-04] MEDS: levETIRAcetam 500 MG TAB PO SCH ×2 (13:45→19:14)
[2019-12-04] MEDS: CHLORASEPTIC 1.4% SOLN 180 ML BTL MT PRN ×2 (14:05→16:23)
[2019-12-04] MEDS ORDERED: GADOBUTROL 65ML VIAL IV ONE (15:55)
--- NOTE | 2019-12-04 16:15 | Magnetic Resonance Report ---
MRI OF THE BRAIN WITHOUT AND WITH IV CONTRAST SEIZURE PROTOCOL CLINICAL HISTORY: Seizure. COMPARISON STUDY: Head CT performed earlier today. TECHNIQUE: Utilizing a 1.5 Jina magnet and dedicated coil, multiplanar, multiecho imaging of the br ain was performed pre and postcontrast administration. IV administration of 6.5 mL of Gadavist contr ast was uneventful. Thin cut coronal T2 imaging was performed according to seizure protocol. FINDINGS: There are no foci of restricted diffusion to suggest acute infarct. No acute intracranial h emorrhage, midline shift or mass effect is present. As the contrast images are mildly compromised by motion artifact but aren't diagnostic. There is no intracranial mass or pathologic enhancement. Flow- voids for the major intracranial vessels are present. No parenchymal signal abnormality is present. C alvarial signal is unremarkable. Orbits are unremarkable. There is no fluid within the sinuses or mas toid air cells. IMPRESSION: 1. Unremarkable MRI of the brain. No acute intracranial findings. No intracranial mass. 2. Exam mildly compromised by motion artifact. ACT 112: Negative or not required by law. Electronically signed by: Milo Duron M.D. 12/04/2019 4:14 PM
--- NOTE | 2019-12-04 18:26 | Discharge Summary ---
Date of Service December 04, 2019 Admission HPI Per Admitting Provider Darrell Bahena is a pleasant 19yo male with history of anxiety presenting with witnessed seizure x 2. Patient was with friends this evening. He stood up from the couch then reportedly stumbled, bumped his head and had an episode of seizure-like activity lasting approximately 1 minute. By report, patient was slightly confused when EMS arrived on the scene. Patient does not recall the seizure. He does remember waking up with EMS over him. He was transported to [facility]. Upon arrival he was afebrile, hemodynamically stable, NAD. Patient had a witnessed seizure in the ER. He reports having some "tunnel vision" preceding the second seizure. He was given 2mg of Ativan and subsequently loaded with 2g of IV Keppra. Patient states that he has not been sleeping or eating well at times. He says he smokes a lot of marijuana, approximately 1 gm per day. He buys the marijuana from friends - no synthetic, no THC vaping. He does have a medical marijuana card for his diagnosis of anxiety, however, he has not been to the dispensary here. He drinks EtOH fairly regularly. No prior seizure history. No fever/headache/neck stiffness/numbness/tingling/weakness. Patient complaining of some tongue soreness otherwise feels well. ER Course: Ativan x 2mg IV, Keppra x 2gm Principal Diagnosis Seizure Discharge Exam Constitutional WD/WN, vitals as above Eyes EOM intact bilaterally; no conjunctival abnormality ENMT external ear and nose normal, oropharynx normal Neck trachea midline, no thyromegaly normal visual inspection Respiratory normal respiratory effort, lungs clear to auscultation no respiratory distress Cardiovascular RRR, no murmur, no edema Gastrointestinal (Abdomen) Inspection/Auscultation: abdomen normal to inspection; abdomen not distended Musculoskeletal no cyanosis or clubbing, extremities motor strength 5/5 Skin no rashes, warm and dry Neurologic moves all extremities and awake Psychiatric Orientation: alert, oriented to person and cooperative Discharge Data Allergies Allergy/AdvReac Type Severity Reaction Status Date / Time pollen extracts Allergy Intermediate ITCHY Verified 12/04/19 02:32 EYES, SNEEZING, CONGESTION Consultations 12/04/19 07:15 Consult Neurology Routine Ordered Studies 12/04/19 01:58 CT head/brain wo con Urgent 12/04/19 11:45 MR brain seizure wo/w con Urgent Hospital Course (1) Seizure: 19yo male with history of anxiety presenting with witness tonic clonic seizure x 2. Patient with no personal or family history of seizure, no head trauma, fever, neck stiffness. Alcohol consumption ~10 drinks/wk, making alcohol an unlikely contributor. CT head & MRI brain w/ w/o contrast were unremarkable. Electrolytes and TSH are within normal limits. Physical exam with no focal deficits. - EEG on 12/03 was without any epileptiform discharge. - Neurology consulted - Recommended Keppra 500 mg PO BID x 2-3 months if he does well. Can potentially taper/stop if no further seizure activity. Will follow up with Dr. Jaramillo in 1 month. (2) Anxiety: Patient with diagnosis of anxiety. He has a medical marijuana card for this. - Has trialed SSRI in the past with significant side effects. - Can follow up with outpatient counselor as needed. (3) Low blood pressure: Patient reports personal and family history of low blood pressure. He has dizziness with positional changes as well. ?Consider POTS - orthostasis, low bp, anxiety, sleep disturbance. - Blood pressure here was generally stable, though on the low end. - Counseled high salt intake and good hydration. If symptoms continue despite these measures, could consider further testing, but in the past, it seems like this has been enough to normalize BP. Total Time Total Time Spent Total Time Spent (In Minutes): 35 Discharge Plan Discharge Items Patient Disposition: Home - Self-Care Reason For Visit: SEIZURE Discharge Diagnosis: Seizure Activity: Resume your previous activity Non-emergency contact: Primary Care Provider and Neurologist Call non-emergency contact if: your symptoms worsen Follow-up/Referrals: Kirby Jaramillo MD [Physician] - (Please see Dr. Jaramillo or a provider in his office in 4 weeks.) [facility] [Primary Care Provider] - Diet: Regular Addtl Attending Provider Instructions: You were admitted to the hospital with activity that is very convincing for seizure activity. We are not entirely sure what caused the seizures. Certainly alcohol (or its abrupt withdrawal) can trigger seizures; however, your level of drinking seems much within normal limits. There is a lot mixed data on Cannabis use. There is evidence that it does have anti-seizure properties, but it is a very complex drug to use and has many compounds. Given we are not sure of the exact content of the marijuana you smoked, it's impossible to tell how it may have affected you. There is some evidence to say that taking a steady amount of marijuana, then stopping it can also lower your seizure threshold. Luckily, your EEG was normal which means your potential for future seizures is hopefully low. Likewise, your MRI was normal which is great! Dr. Jaramillo feels it is sensible to start a low-dose anti-convulsant called Keppra at least temporarily. If you remain seizure-free for 2-3 months, he will likely taper you off this as an outpatient. Please call Dr. Jaramillo's office for a follow up appointment in 4 weeks or so. If you have any further seizures, call his office right away or return to the Emergency Department. Pending Studies at Discharge: No Stand-Alone Forms: [facility] [employer], Smoking Cessation Medications and DC Order Prescriptions: New levetiracetam [Keppra] 500 mg Tablet 500 mg PO BID Qty: 60 RF: 1 Continued Medical Marijuana 1 dose inhalation DIRECTED PRN (Reason: NEEDED) RF: 0 Discharge Orders: Discharge Order (Routine); Ordered 12/04/19 Ordered By: Ranjeet Ibarra Admission Data Admit Date/Time: 12/04/19 04:43 Attending Provider: Ranjeet Ibarra Admit Provider: Ligia Marquez Primary Care Provider: [facility] Other Providers: Kirby Jaramillo Coding Level of Care Code D/C Day Management >30 mins Diagnoses Seizure R56.9 Anxiety F41.9 Low blood pressure I95.9 Hypotension type: unspecified hypotension type
[2019-12-06 23:17] LABS: Marijuana Quant, GCMS Urine 291 ng/mL (<5)
== END 2019-12-04 19:35 | disposition home or self-care (01) | DRG 101 ==
LOC: ED 01:45 → 3N 04:43 → SUATTDRO 04:43 → 3N 06:08